=== PATIENT | female | born 1970 | race Caucasian/White ===

== ENCOUNTER 2017-04-29 13:33 | Day surgery (SDC) | payer OTHER ==
[~2017-04-29] VITALS: Ht 172.7 cm; Wt 77.1 kg
[~2017-04-29 13:33] MED LIST: BIRTH CONTROL PILL PO; LEXAPRO5 MG PO; MINASTRIN 24 F1 EACH PO; TYLENOL PM EX-1 EACH PO
[2017-04-29 14:03] VITALS: BP 144/73
[2017-04-29 17:45] VITALS: BP 142/76
[2017-04-29 18:33] VITALS: BP 138/74
[2017-05-03 13:15] LABS: INTERNAL CONTROL VALID? YES
== END 2017-04-29 18:45 | disposition home or self-care (01) ==
LOC: SDC 13:33
PROVIDERS: Anesthesiology
PROC: 0RNJ4ZZ Release Right Shoulder Joint, Percutaneous Endoscopic Approach (ICD-10-PCS; principal; 2017-04-29)
DX: M75.01 Adhesive capsulitis of right shoulder (principal); M75.111 Incomplete rotator cuff tear or rupture of right shoulder, not specified as traumatic; F32.9 Major depressive disorder, single episode, unspecified; Z82.49 Family history of ischemic heart disease and other diseases of the circulatory system
CPT/HCPCS: 84703; J0131; J0171; J0690; J1100; J2250; J2405; J2795; J3010